=== PATIENT | female | born 2000 | race African-American/Black ===

== ENCOUNTER 2023-07-10 21:35 | Emergency (ER) | payer OTHER, SELFPAY | END 2023-07-10 23:02 | disposition home or self-care (01) | LOC: CSHERS 21:35 | DX: O99.891 Other specified diseases and conditions complicating pregnancy (principal); R10.32 Left lower quadrant pain; Z3A.01 Less than 8 weeks gestation of pregnancy | CPT/HCPCS: 76856 ==